=== PATIENT | female | born 1985 | race Caucasian/White ===

== ENCOUNTER 2019-08-15 09:42 | Day surgery (SDC) | payer BC ==
[~2019-08-15] VITALS: Ht 160 cm; Wt 54.4 kg
[~2019-08-15 09:42] MED LIST: CLINDAMYCIN PHOS 600 MG/ D5W 50 ML PREMIX IV ONE
[2019-08-15] MEDS ORDERED: NS IRRIG SOLN 1000 ML IR ONE (10:56)
[2019-08-15] MEDS ORDERED: PROPOFOL 200MG/ 20ML VIAL (DIPRIVAN) IV ONE (10:56)
[2019-08-15] MEDS ORDERED: fentaNYL CITRATE/PF 100 MCG/2 ML AMP IVP ONE (10:56)
[2019-08-15] MEDS ORDERED: NS 1000 ML IV.SOLN IV ONE (10:56)
[2019-08-15] MEDS ORDERED: SEVOFLURANE 15 MIN GAS INH ONE (10:56)
[2019-08-15] MEDS ORDERED: MIDAZOLAM HCL 5 MG/5 ML VIAL IVP ONE (10:56)
[2019-08-15] MEDS ORDERED: LR 1,000 ML IV.SOLN IV ONE (10:56)
[2019-08-15] MEDS ORDERED: HYDROcodone/ACETAMIN 5-325 MG TAB (NORCO/ VICODIN) PO PRN (11:45)
[2019-08-15] MEDS ORDERED: ONDANSETRON HCL 4 MG/2 ML VIAL IM PRN (11:45)
[2019-08-15] MEDS ORDERED: OXYCODONE/ACETAMINOPHEN 5-325 TABLET PO PRN (11:45)
[2019-08-15] MEDS ORDERED: fentaNYL CITRATE/PF 100 MCG/2 ML AMP IVP PRN ×2 (12:45)
[2019-08-15] MEDS ORDERED: KETOROLAC TROMETHAMINE 30 MG VIAL IVP PRN (12:45)
[2019-08-15 14:43] VITALS: BP_SYST 106
== END 2019-08-15 13:20 | disposition home or self-care (01) ==
LOC: SDS 09:42 → SMU 09:42 → SDS 13:20
PROVIDERS: ATTEND Specialist
DX: O03.4 Incomplete spontaneous abortion without complication (principal)
CPT/HCPCS: 59812; 88305; J2250; J2704; J3010; J3490; J7030; J7120

== ENCOUNTER 2020-01-21 00:27 | Day surgery (SDC) | payer BC ==
[~2020-01-21] VITALS: Ht 30.5 cm; Wt 0.5 kg
[2020-01-21 00:30] VITALS: BP_SYST 104
[2020-01-21] MEDS ORDERED: NS 500 ML IV ONE (01:00)
[2020-01-21] MEDS ORDERED: OXYTOCIN/0.9 % SODIUM CHLORIDE 1,000 ML IV SCH (01:00)
[2020-01-21 01:11] LABS: BASOPHILS % (AUTO) 0.4 % (0.0-2.0); EOSINOPHILS % (AUTO) 0.1 % (0.0-4.0); HEMATOCRIT 24.7 % (36-48); HEMOGLOBIN 8.4 g/dL (12.0-16.0); LYMPHOCYTES # (AUTO) 0.8 K/uL (1.0-5.5); LYMPHOCYTES % (AUTO) 9.3 % (20.5-51.5); MEAN CORPUSCULAR HEMOGLOBIN 33 pg (27-31); MEAN CORPUSCULAR HGB CONC 34 % (32-36); MEAN CORPUSCULAR VOLUME 97 fL (79.0-98.0); MONOCYTES # (AUTO) 0.4 K/uL (0.0-1.0); MONOCYTES % (AUTO) 4.9 % (1.7-9.3); NEUTROPHILS # (AUTO) 7.6 K/uL (1.8-7.7); NEUTROPHILS % (AUTO) 85.3 % (40.0-70.0); PLATELET COUNT (AUTO) 215 K/uL (130-430); RED BLOOD CELL COUNT(AUTO) 2.55 MIL/uL (4.2-6.2); RED CELL DISTRIBUTION WIDTH 12.9 % (9.0-15.0)
[2020-01-21] MEDS ORDERED: TRANEXAMIC ACID 1,000 MG/10 ML VIAL IV ONE ×2 (01:15→01:30)
[2020-01-21 01:28] LABS: CREATININE 0.65 mg/dL (0.55-1.30); POTASSIUM 4.3 mmol/L (3.5-5.1)
[2020-01-21] MEDS ORDERED: BUPIVACAINE /DEX PF 0.75% SPINAL 2 ML AMP INJ ONE (01:40)
[2020-01-21] MEDS ORDERED: METOCLOPRAMIDE HCL 10 MG/2 ML VIAL IVP ONE (01:40)
[2020-01-21] MEDS ORDERED: CEFAZOLIN 1 GM IVPB PREMIX 50 ML IV ONE (01:40)
[2020-01-21] MEDS ORDERED: OXYTOCIN 10 UNIT/ML VIAL IV ONE (01:40)
[2020-01-21] MEDS ORDERED: LR 1,000 ML IV.SOLN IV ONE (01:40)
[2020-01-21] MEDS ORDERED: NS 1000 ML IV.SOLN IV ONE (01:40)
[2020-01-21 01:52] LABS: ALBUMIN 3.4 g/dL (3.4-4.8); TOTAL BILIRUBIN 0.3 mg/dL (0.0-1.0)
[2020-01-21] MEDS ORDERED: fentaNYL CITRATE/PF 100 MCG/2 ML AMP IVP PRN ×2 (02:30)
[2020-01-21] MEDS ORDERED: ONDANSETRON HCL 4 MG/2 ML VIAL IVP PRN (02:30)
[2020-01-21 04:42] VITALS: BP_SYST 107
[2020-01-21 04:47] VITALS: BP_SYST 107
[2020-01-21] MEDS ORDERED: MORPHINE 2 MG/ML INJ. SYRINGE IVP PRN (06:00)
[2020-01-21] MEDS ORDERED: HYDROcodone/ACETAMIN 5-325 MG TAB (NORCO/ VICODIN) PO PRN ×2 (06:00)
[2020-01-21 06:21] LABS: BASOPHILS % (AUTO) 0.2 % (0.0-2.0); HEMATOCRIT 25.2 % (36-48); HEMOGLOBIN 8.6 g/dL (12.0-16.0); LYMPHOCYTES % (AUTO) 13.8 % (20.5-51.5); MEAN CORPUSCULAR HEMOGLOBIN 31 pg (27-31); MEAN CORPUSCULAR HGB CONC 34 % (32-36); MEAN CORPUSCULAR VOLUME 90 fL (79.0-98.0); MONOCYTES # (AUTO) 0.5 K/uL (0.0-1.0); MONOCYTES % (AUTO) 7.1 % (1.7-9.3); NEUTROPHILS # (AUTO) 5.7 K/uL (1.8-7.7); NEUTROPHILS % (AUTO) 78.9 % (40.0-70.0); PLATELET COUNT (AUTO) 144 K/uL (130-430); RED BLOOD CELL COUNT(AUTO) 2.81 MIL/uL (4.2-6.2); RED CELL DISTRIBUTION WIDTH 18.7 % (9.0-15.0); WHITE BLOOD COUNT (AUTO) 7.2 K/uL (4.8-10.8)
[2020-01-21 08:30] VITALS: BP_SYST 104
[2020-01-21 09:48] LABS: BILIRUBIN,URINE NEGATIVE (NEGATIVE); BLOOD, URINE 3+ (NEGATIVE); CLARITY/URINE CLEAR (CLEAR); COLOR,URINE YELLOW (YELLOW); GLUCOSE,URINE 1+ (NEGATIVE); KETONES,URINE NEGATIVE (NEGATIVE); LEUKOCYTE ESTERASE ,URINE NEGATIVE (NEGATIVE); NITRITE, URINE NEGATIVE (NEGATIVE); PH,URINE 5.5 (5.0-8.0); PROTEIN URINE NEGATIVE (NEGATIVE); UROBILINOGEN,URINE 0.2 (0.2-1.0)
[2020-01-21 10:04] LABS: BACTERIA,URINE RARE /HPF (None Seen); RBC,URINE 20-50 /HPF (0-3); WBC,URINE NONE SEEN /HPF (0-3)
[2020-01-21 12:00] VITALS: BP_SYST 111
[2020-01-21 14:04] VITALS: BP_SYST 111
== END 2020-01-21 14:25 | disposition home or self-care (01) ==
LOC: SED 00:27 → SMU 01:40 → SDS 01:52 → SMU 04:40 → SDS 14:25
PROVIDERS: ATTEND Obstetrics & Gynecology
DX: O03.4 Incomplete spontaneous abortion without complication (principal)
CPT/HCPCS: 31500; 36415; 43753; 59812; 70450; 80053; 81000; 84702; 85025; 86886; 86900; 86901; 86920; 87081; 88305; 96361; 96374; 96375; 99285; J0690; J2590; J2765; J3010; J3490 ×2; J7030; J7120; P9021